=== PATIENT | male | born 1985 | race Caucasian/White ===

== ENCOUNTER → 2017-10-26 | Emergency (ER) | payer OTHER ==
[~2017-10-26] VITALS: Ht 177.8 cm; Wt 80.3 kg
== END | disposition home or self-care (01) ==
LOC: ER 18:26
DX: S61.412A Laceration without foreign body of left hand, initial encounter (principal); W25.XXXA Contact with sharp glass, initial encounter; Y93.89 Activity, other specified; Y92.098 Other place in other non-institutional residence as the place of occurrence of the external cause; Y99.8 Other external cause status